=== PATIENT | female | born 1995 | race Caucasian/White ===

== ENCOUNTER 2017-12-18 02:33 | Emergency (ER) | payer MEDICAID ==
[~2017-12-18] VITALS: Ht 162.6 cm; Wt 77.3 kg
[~2017-12-18 02:33] MED LIST: ACETAMINOPHEN W1 TA6 PO; ADDERALL XR15 MG PO; AMOXICILLIN 8751 TAB PO; AMOXICILLIN AND1 TAB PO; ANTIDIARRHEA MED; CEPHALEXIN250 M1 PO; CLARITIN 1010 MG/TAB PO; CONCERTA18 MG PO; DEPO-PROVER150 MG/M1 IM; FERROUS SULFATE27 MG; MONONESSA 35 MC1 TA1 PO; ORAJEL; PRENATAL1 TA1 PO; PROTONIX 40MG T40 MG PO; PROVENTIL0.09 MG/A1 IH; SENOKOT S 50 MG1 TAB PO; SEROQUEL; SEROQUEL 2525 MG/TAB PO; SEROQUEL300 MG PO; SPRINTEC 35 MCG1 TAB PO; VENTOLIN0.09 MG; ZANTAC 150MG T150 MG PO; [UNRECOGNIZED DRUG - OTHER]; [UNRECOGNIZED DRUG - OTHER]
[2017-12-18 02:40] VITALS: BP 119/75; TEMP 98
[2017-12-18] MEDS ORDERED: PRENATAL (02:58)
[2017-12-18 03:25] LABS: COLLECTION METHOD CLEAN CATCH
[2017-12-18 03:33] LABS: PH 6 (5-8); SQUAMOUS EPITHELIAL 0-2 /hpf; URINE APPEARANCE Clear; URINE BACTERIA None Seen /hpf; URINE BILIRUBIN Negative (NEGATIVE); URINE BLOOD Negative (NEGATIVE); URINE COLOR Yellow; URINE GLUCOSE Negative (NEGATIVE); URINE KETONE Negative (NEGATIVE); URINE LEUKOCYTE ESTERASE Negative (NEGATIVE); URINE NITRATE Negative (NEGATIVE); URINE PROTEIN(semi-quant) Negative (NEGATIVE); URINE RBC 0-2 /hpf; URINE UROBILINOGEN Negative (NEGATIVE)
[2017-12-18 04:31] VITALS: PULSE 89
== END 2017-12-18 04:32 | disposition home or self-care (01) ==
LOC: COL.ER 02:33
PROVIDERS: Emergency Medicine
DX: O9A.211 Injury, poisoning and certain other consequences of external causes complicating pregnancy, first trimester (principal); S00.03XA Contusion of scalp, initial encounter; Z3A.00 Weeks of gestation of pregnancy not specified; Y04.2XXA Assault by strike against or bumped into by another person, initial encounter; Y92.039 Unspecified place in apartment as the place of occurrence of the external cause

== ENCOUNTER 2018-04-29 22:57 | Outpatient (CLI) | payer MEDICAID ==
[~2018-04-29] VITALS: Ht 162.6 cm; Wt 71.4 kg
[~2018-04-29 22:57] MED LIST changes: +PRENATAL
[2018-04-29 23:10] VITALS: BP 111/69; PULSE 96; TEMP 98.7
== END 2018-04-30 00:21 | disposition home or self-care (01) ==
LOC: LDRO 22:57
DX: O99.89 Other specified diseases and conditions complicating pregnancy, childbirth and the puerperium (principal); R10.30 Lower abdominal pain, unspecified; Z3A.24 24 weeks gestation of pregnancy

== ENCOUNTER 2018-05-10 20:50 | Outpatient (CLI) | payer MEDICAID ==
[~2018-05-10] VITALS: Ht 162.6 cm; Wt 70.5 kg
[2018-05-10 21:50] VITALS: BP 102/57; PULSE 88; TEMP 98.4
== END 2018-05-10 21:54 | disposition home or self-care (01) ==
LOC: LDRO 20:50
DX: O36.8120 Decreased fetal movements, second trimester, not applicable or unspecified (principal); Z3A.26 26 weeks gestation of pregnancy

== ENCOUNTER 2018-05-18 08:34 | Outpatient (CLI) | payer MEDICAID ==
[~2018-05-18] VITALS: Ht 162.6 cm; Wt 155.0 kg
[2018-05-18 08:40] VITALS: BP 102/56; PULSE 86; TEMP 98.5
[2018-05-18 08:43] VITALS: BP 102/56; PULSE 86; TEMP 98.5
[2018-05-18 09:10] VITALS: BP 84/50; PULSE 84
== END 2018-05-18 09:15 | disposition home or self-care (01) ==
LOC: LDRO 08:34
DX: O46.92 Antepartum hemorrhage, unspecified, second trimester (principal); Z3A.27 27 weeks gestation of pregnancy

== ENCOUNTER 2018-07-02 20:55 | Outpatient (CLI) | payer MEDICAID ==
[~2018-07-02] VITALS: Ht 162.6 cm; Wt 70.0 kg
[2018-07-02 22:00] VITALS: BP 108/62; PULSE 74; TEMP 98.2
[2018-07-02 22:32] VITALS: BP 101/58; PULSE 58
== END 2018-07-02 22:40 ==
LOC: LDRO 20:55 → LDR 21:00 → LDRO 22:40
DX: Z34.83 Encounter for supervision of other normal pregnancy, third trimester (principal); Z3A.33 33 weeks gestation of pregnancy
CPT/HCPCS: OP

== ENCOUNTER 2018-07-03 16:19 | Outpatient (CLI) | payer MEDICAID ==
[~2018-07-03] VITALS: Ht 162.6 cm; Wt 70.0 kg
[2018-07-03 16:34] VITALS: BP 104/55; PULSE 87; TEMP 98.2
== END 2018-07-03 17:35 | disposition home or self-care (01) ==
LOC: LDRO 16:19
DX: O42.913 Preterm premature rupture of membranes, unspecified as to length of time between rupture and onset of labor, third trimester (principal); Z3A.33 33 weeks gestation of pregnancy

== ENCOUNTER → 2018-07-09 | Outpatient (CLI) | payer MEDICAID ==
[~2018-07-09] VITALS: Ht 162.6 cm; Wt 70.9 kg
[~2018-07-09] MED LIST changes: +PROAIR HFA0.09 MG/AC IH
[2018-07-09 01:35] VITALS: BP 88/54; PULSE 74; TEMP 98.2
== END ==
LOC: LDRO 00:59
DX: O62.9 Abnormality of forces of labor, unspecified (principal); Z3A.34 34 weeks gestation of pregnancy

== ENCOUNTER 2018-08-09 06:39 | Inpatient (IN) | payer MEDICAID ==
[~2018-08-09] VITALS: Ht 162.6 cm; Wt 70.5 kg
[2018-08-09] VITALS (27 sets, daily range): BP systolic 93–191; BP diastolic 50–78; PULSE 55–86; TEMP 97.6–98.5
[2018-08-09 08:15] LABS: BASO # 0.1 (0.0-0.2); BASO % 0.7 % (0.0-2.0); EOS # 0.1 (0.0-0.7); GRAN # 5.3 (1.4-6.5); GRAN % 59.4 % (42.2-75.2); HEMOGLOBIN 11.8 g/dl (12.5-16.0); LYMPH # 2.8 (1.2-3.4); LYMPH % 31.5 % (20.0-51.0); MEAN CELL VOLUME 94 fl (80.0-100.0); MEAN CORPUSCULAR HEMOGLOBIN 31 pg (27.0-31.0); MEAN CORPUSCULAR HGB CONC 33 g/dl (33.0-37.0); MEAN PLATELET VOLUME 11.7 fl (7.4-10.4); MONO # 0.6 (0.1-0.6); MONO % 6.6 % (1.7-9.3); PLATELET COUNT 243 K/mm3 (130-400); RED BLOOD COUNT 3.86 M/mm3 (4.10-5.30); REDCELL DISTRIBUTION WIDTH-CV 13.7 % (11.5-14.5)
[2018-08-09 08:18] LABS: HEMATOCRIT 36.1 % (37.0-47.0)
[2018-08-10 01:00] VITALS: BP 110/60; PULSE 62; TEMP 98
[2018-08-10 08:00] VITALS: BP 103/53; PULSE 53; TEMP 97.5
[2018-08-10] MEDS ORDERED: IBU600 MG PO (08:30)
[2018-08-10 12:30] VITALS: BP 96/55; PULSE 79; TEMP 97.6
[2018-08-10 17:00] VITALS: BP 106/57; PULSE 57; TEMP 98.1
== END 2018-08-10 18:15 | disposition home or self-care (01) | DRG 807 ==
LOC: LDR 06:39 → OB 15:15
PROVIDERS: Obstetrics & Gynecology
PROC: 10E0XZZ Delivery of Products of Conception, External Approach (ICD-10-PCS; principal; 2018-08-09)
PROC: 3E033VJ Introduction of Other Hormone into Peripheral Vein, Percutaneous Approach (ICD-10-PCS; 2018-08-09)
PROC: 10907ZC Drainage of Amniotic Fluid, Therapeutic from Products of Conception, Via Natural or Artificial Opening (ICD-10-PCS; 2018-08-09)
PROC: 0UQMXZZ Repair Vulva, External Approach (ICD-10-PCS; 2018-08-09)
DX: O99.02 Anemia complicating childbirth (principal); Z37.0 Single live birth; O70.0 First degree perineal laceration during delivery; Z3A.39 39 weeks gestation of pregnancy; O99.334 Smoking (tobacco) complicating childbirth; F17.211 Nicotine dependence, cigarettes, in remission
CPT/HCPCS: J2590; J7120

== ENCOUNTER → 2019-04-18 | Emergency (ER) | payer MEDICAID ==
[~2019-04-18] VITALS: Ht 160 cm; Wt 61.4 kg
[~2019-04-18] MED LIST changes: +IBU600 MG PO
[2019-04-18 20:38] VITALS: BP 106/62; PULSE 88; TEMP 97.4
== END ==
LOC: COL.ER 20:27
DX: M25.572 Pain in left ankle and joints of left foot (principal)

== ENCOUNTER 2019-09-12 20:42 | Emergency (ER) | payer MEDICAID ==
[~2019-09-12] VITALS: Ht 160 cm; Wt 52.3 kg
[2019-09-12 21:01] VITALS: BP 113/65; TEMP 98.1
[2019-09-12] MEDS ORDERED: FLEXERIL 1010 MG/TAB PO (21:19)
[2019-09-12 21:50] VITALS: PULSE 95
== END 2019-09-12 21:50 | disposition home or self-care (01) ==
LOC: COL.ER 20:42
DX: G57.11 Meralgia paresthetica, right lower limb (principal); F17.210 Nicotine dependence, cigarettes, uncomplicated
CPT/HCPCS: J1885

== ENCOUNTER 2019-10-09 22:32 | Emergency (ER) | payer MEDICAID ==
[~2019-10-09] VITALS: Ht 160 cm; Wt 50.0 kg
[~2019-10-09 22:32] MED LIST changes: +FLEXERIL 1010 MG/TAB PO
[2019-10-09 22:37] VITALS: BP 119/59; PULSE 85; TEMP 98.3
[2019-10-09 23:04] LABS: COLLECTION METHOD CLEAN CATCH
[2019-10-09 23:06] LABS: BASO # 0.1 (0.0-0.2); BASO % 0.9 % (0.0-2.0); EOS # 0.2 (0.0-0.7); EOS % 2.2 % (0-4.0); GRAN # 3.2 (1.4-6.5); GRAN % 47.6 % (42.2-75.2); HEMATOCRIT 37.8 % (37.0-47.0); HEMOGLOBIN 12.3 g/dl (12.5-16.0); LYMPH # 2.9 (1.2-3.4); LYMPH % 42.4 % (20.0-51.0); MEAN CELL VOLUME 93 fl (80.0-100.0); MEAN CORPUSCULAR HEMOGLOBIN 30 pg (27.0-31.0); MEAN CORPUSCULAR HGB CONC 33 g/dl (33.0-37.0); MEAN PLATELET VOLUME 10.2 fl (7.4-10.4); MONO # 0.5 (0.1-0.6); MONO % 6.6 % (1.7-9.3); PLATELET COUNT 239 K/mm3 (130-400); RED BLOOD COUNT 4.05 M/mm3 (4.10-5.30); REDCELL DISTRIBUTION WIDTH-CV 12.6 % (11.5-14.5)
[2019-10-09 23:10] LABS: PH 6 (5-8); SQUAMOUS EPITHELIAL 0-2 /hpf; URINE APPEARANCE Clear; URINE BACTERIA None Seen /hpf; URINE BILIRUBIN Negative (NEGATIVE); URINE BLOOD 3+ (NEGATIVE); URINE COLOR Straw; URINE GLUCOSE Negative (NEGATIVE); URINE KETONE Negative (NEGATIVE); URINE LEUKOCYTE ESTERASE Negative (NEGATIVE); URINE NITRATE Negative (NEGATIVE); URINE PROTEIN(semi-quant) Negative (NEGATIVE); URINE RBC 20-50 /hpf; URINE UROBILINOGEN Negative (NEGATIVE)
== END 2019-10-10 00:50 | disposition left against medical advice (07) ==
LOC: COL.ER 22:32
PROVIDERS: Nurse Practitioner
DX: O46.91 Antepartum hemorrhage, unspecified, first trimester (principal); O99.331 Smoking (tobacco) complicating pregnancy, first trimester; F17.210 Nicotine dependence, cigarettes, uncomplicated; Z3A.00 Weeks of gestation of pregnancy not specified

== ENCOUNTER 2020-02-20 22:57 | Emergency (ER) | payer MEDICAID ==
[~2020-02-20] VITALS: Ht 160 cm; Wt 50.0 kg
[2020-02-20 22:58] VITALS: BP 107/71; TEMP 98.1
[2020-02-21 00:36] VITALS: PULSE 86
== END 2020-02-21 00:36 | disposition home or self-care (01) ==
LOC: COL.ER 22:57
DX: S83.91XA Sprain of unspecified site of right knee, initial encounter (principal); X50.1XXA Overexertion from prolonged static or awkward postures, initial encounter; W22.8XXA Striking against or struck by other objects, initial encounter
CPT/HCPCS: L1846

== ENCOUNTER 2020-05-03 17:20 | Emergency (ER) | payer MEDICAID ==
[~2020-05-03] VITALS: Ht 160 cm; Wt 57.7 kg
[2020-05-03 17:31] VITALS: BP 102/67; TEMP 98.3
[2020-05-03 19:30] VITALS: PULSE 63
== END 2020-05-03 19:30 | disposition home or self-care (01) ==
LOC: COL.ER 17:20
DX: K91.840 Postprocedural hemorrhage of a digestive system organ or structure following a digestive system procedure (principal); F17.210 Nicotine dependence, cigarettes, uncomplicated; Z98.818 Other dental procedure status

== ENCOUNTER 2020-06-10 00:56 | Emergency (ER) | payer MEDICAID ==
[~2020-06-10] VITALS: Ht 160 cm; Wt 53.2 kg
[2020-06-10 01:18] VITALS: TEMP 98.1
[2020-06-10 01:53] LABS: COLLECTION METHOD CLEAN CATCH
[2020-06-10 01:56] LABS: BASO % 0.5 % (0.0-2.0); EOS # 0.2 (0.0-0.7); EOS % 2.1 % (0-4.0); GRAN # 5.1 (1.4-6.5); HEMATOCRIT 37.5 % (37.0-47.0); HEMOGLOBIN 12.3 g/dl (12.5-16.0); LYMPH # 1.7 (1.2-3.4); MEAN CELL VOLUME 93 fl (80.0-100.0); MEAN CORPUSCULAR HEMOGLOBIN 31 pg (27.0-31.0); MEAN CORPUSCULAR HGB CONC 33 g/dl (33.0-37.0); MEAN PLATELET VOLUME 10.5 fl (7.4-10.4); MONO # 0.7 (0.1-0.6); MONO % 9.1 % (1.7-9.3); PLATELET COUNT 218 K/mm3 (130-400); RED BLOOD COUNT 4.03 M/mm3 (4.10-5.30)
[2020-06-10 02:02] LABS: MUCOUS Present /lpf; PH 6 (5-8); URINE APPEARANCE Hazy; URINE BACTERIA None Seen /hpf; URINE BILIRUBIN Negative (NEGATIVE); URINE BLOOD Negative (NEGATIVE); URINE COLOR Yellow; URINE GLUCOSE Negative (NEGATIVE); URINE KETONE Negative (NEGATIVE); URINE LEUKOCYTE ESTERASE Trace (NEGATIVE); URINE NITRATE Negative (NEGATIVE); URINE PROTEIN(semi-quant) Negative (NEGATIVE); URINE RBC 0-2 /hpf; URINE UROBILINOGEN Negative (NEGATIVE)
[2020-06-10 02:06] LABS: TRICYCLIC ANTIDEPRESS URINE NEGATIVE
[2020-06-10 02:06] LABS: ALBUMIN 3.7 gm/dL (3.5-5.0); BILIRUBIN,TOTAL 0.5 mg/dL (0.0-1.0); CALCIUM 8.5 mg/dL (8.4-10.2); CREATININE, serum 0.42 (0.52-1.25); POTASSIUM 3.1 mmol/L (3.4-5.0); TOTAL PROTEIN 6.8 gm/dL (6.4-8.2)
[2020-06-10] MEDS ORDERED: PHENERGAN 25 TA25 MG PO (02:49)
[2020-06-10 04:32] VITALS: BP 90/54; PULSE 71
== END 2020-06-10 04:40 | disposition home or self-care (01) ==
LOC: COL.ER 00:56
PROVIDERS: Nurse Practitioner Primary Care
DX: O26.812 Pregnancy related exhaustion and fatigue, second trimester (principal); O21.9 Vomiting of pregnancy, unspecified; R10.9 Unspecified abdominal pain; E86.0 Dehydration; Z3A.15 15 weeks gestation of pregnancy; Z91.018 Allergy to other foods
CPT/HCPCS: J2405; J2550; J7030

== ENCOUNTER 2020-10-26 22:28 | Outpatient (CLI) | payer MEDICAID ==
[~2020-10-26] VITALS: Ht 160 cm; Wt 54.5 kg
[~2020-10-26 22:28] MED LIST changes: +PHENERGAN 25 TA25 MG PO
--- NOTE | 2020-10-26 22:40 | NUR ---
G4L2 at 34 weeks and 3 days gestation arrives to unit with complaint of pain and losing her mucous plug. Pt states she lost her plug and there was some blood in it. Pt also states having to change her underwear multiple times a day. Pts pain is sharp and constant and isn't described like contractions. Pt arrived to unit by ambulance in police custody, officer at bedside. US and toco explained and applied. Admission assessment started. Vital signs obtained. SVE by Laith / white discharge noted on exam glove. Amnitrace negative.
[2020-10-26 23:00] VITALS: BP 100/52; PULSE 70; TEMP 97.8
[2020-10-26 23:30] VITALS: PULSE 69
--- NOTE | 2020-10-26 23:30 | NUR ---
Pt states she has felt more leaking. Peritowel appears dry. Amnitrace negative. Discussed possible BV or other infection and patient states "yea I keep getting that but the pills make me throw up"
--- NOTE | 2020-10-26 23:50 | NUR ---
SVE 1-2/50/-3, membranes felt on exam. head presenting part. See physician notification.
[2020-10-27] VITALS: PULSE 75
[2020-10-27 00:21] LABS: COLLECTION METHOD CLEAN CATCH
[2020-10-27 00:30] VITALS: BP 81/49; PULSE 73
[2020-10-27 00:30] LABS: BUDDING YEAST Present /hpf; MUCOUS Present /lpf; PH 5 (5-8); URINE APPEARANCE Turbid; URINE BACTERIA Rare /hpf; URINE BILIRUBIN Negative (NEGATIVE); URINE BLOOD 3+ (NEGATIVE); URINE COLOR Yellow; URINE GLUCOSE Negative (NEGATIVE); URINE KETONE Negative (NEGATIVE); URINE LEUKOCYTE ESTERASE 3+ (NEGATIVE); URINE NITRATE Negative (NEGATIVE); URINE PROTEIN(semi-quant) 2+ (NEGATIVE); URINE RBC >50 /hpf; URINE UROBILINOGEN Negative (NEGATIVE); URINE WBC >50 /hpf
--- NOTE | 2020-10-27 00:30 | NUR ---
Pts BP 81/49, patient laying on right side and BP taken in left arm. Pt asymptomatic.
--- NOTE | 2020-10-27 01:15 | NUR ---
0023 - Tylenol and vistaril given, see MAR. Encouraged patient to hydrate. Pt does not appear to be having contractions, complains of pelvic pain and difficulty moving. 0100 - SVE unchanged. Reviewed discharge plan with patient, verbalized understanding. 0115 - Macrobid given, see MAR. Discharge instructions and prescription reviewed with patient and given to [employer] officer. Pt off unit in wheelchair with belongings accompanied by [employer] officer.
== END 2020-10-27 01:15 | disposition home or self-care (01) ==
LOC: LDRO 22:28 → LDR 22:43 → LDRO 10-27 01:15
PROVIDERS: Obstetrics & Gynecology
DX: O26.23 Pregnancy care for patient with recurrent pregnancy loss, third trimester (principal); Z3A.34 34 weeks gestation of pregnancy
CPT/HCPCS: OP

== ENCOUNTER 2020-11-11 16:10 | Outpatient (CLI) | payer MEDICAID ==
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
[2020-11-11 16:24] VITALS: BP 121/81; PULSE 98; TEMP 98
[2020-11-11 16:30] VITALS: BP 121/81; PULSE 92; TEMP 98
[2020-11-11] MEDS ORDERED: PRENATAL (16:32)
[2020-11-11 17:00] VITALS: BP 110/72; PULSE 86
[2020-11-11 17:09] VITALS: BP 110/72; PULSE 86
[2020-11-11 17:13] LABS: TRICYCLIC ANTIDEPRESS URINE NEGATIVE
--- NOTE | 2020-11-11 17:15 | NUR ---
PATIENT OFF EFM AND DRESSED TO GO HOME. PATIENT STATES SHE HAS NO GAS MONEY AND UNABLE TO GO TO HER DOCTORS APTS. PATIENT INFORMED OF [facility]. PATIENT INFORMED TO CALL 911 IF SHE DOESNT HAVE A RIDE AND GOES INTO LABOR. DR BAKER NOTIFIED
== END 2020-11-11 17:20 | disposition home or self-care (01) ==
LOC: LDRO 16:10 → LDR 16:38 → LDRO 17:20
PROVIDERS: Obstetrics & Gynecology
DX: O26.893 Other specified pregnancy related conditions, third trimester (principal); R25.2 Cramp and spasm; Z3A.37 37 weeks gestation of pregnancy
CPT/HCPCS: OP

== ENCOUNTER 2022-02-27 21:25 | Emergency (ER) | payer MEDICAID ==
[~2022-02-27] VITALS: Ht 160 cm; Wt 54.5 kg
[2022-02-27 21:36] VITALS: TEMP 97.4
[2022-02-27 22:39] LABS: BASO # 0.1 K/mm3 (0.0-0.2); BASO % 0.9 % (0.0-2.0); EOS # 0.1 K/mm3 (0.0-0.7); EOS % 0.4 % (0.0-4.0); GRAN # 7.6 K/mm3 (1.4-6.5); GRAN % 66.9 % (42.2-75.2); HEMATOCRIT 41.5 % (37.0-47.0); HEMOGLOBIN 14.2 g/dl (12.5-16.0); LYMPH # 2.4 K/mm3 (1.2-3.4); LYMPH % 21.2 % (20.0-51.0); MEAN CELL VOLUME 86 fl (80.0-100.0); MEAN CORPUSCULAR HEMOGLOBIN 29 pg (27-31); MEAN CORPUSCULAR HGB CONC 34 g/dl (33.0-37.0); MEAN PLATELET VOLUME 10.4 fl (7.4-10.4); MONO # 1.2 K/mm3 (0.1-0.6); MONO % 10.3 % (1.7-9.3); PLATELET COUNT 311 K/mm3 (130-400); RED BLOOD COUNT 4.84 M/mm3 (4.10-5.30); REDCELL DISTRIBUTION WIDTH-CV 12.6 % (11.5-14.5)
[2022-02-27 23:04] LABS: ALBUMIN 4.3 gm/dL (3.5-5.0); BILIRUBIN,TOTAL 2.6 mg/dL (0.2-1.2); CALCIUM 9.4 mg/dL (8.4-10.2); CREATININE, serum 0.9 mg/dL (0.57-1.11); POTASSIUM 3.6 mmol/L (3.5-4.5); TOTAL PROTEIN 7.9 gm/dL (6.2-8.1)
[2022-02-27 23:13] VITALS: BP 112/78; PULSE 76
== END 2022-02-27 23:39 | disposition short-term general hospital (02) ==
LOC: COL.ER 21:25
PROVIDERS: Personal Emergency Response Attendant
DX: T76.21XA Adult sexual abuse, suspected, initial encounter (principal); R10.2 Pelvic and perineal pain; F17.290 Nicotine dependence, other tobacco product, uncomplicated; Z28.310 Unvaccinated for COVID-19; Z32.02 Encounter for pregnancy test, result negative

== ENCOUNTER 2022-03-18 23:31 | Emergency (ER) | payer MEDICAID ==
[~2022-03-18] VITALS: Ht 160 cm; Wt 50.0 kg
[2022-03-18 23:37] VITALS: TEMP 98.7
[2022-03-18] MEDS ORDERED: DIFLUCAN150 MG PO (23:42)
[2022-03-18] MEDS ORDERED: PROVENTIL0.09 MG/A1 IH (23:42)
[2022-03-18] MEDS ORDERED: AMOXICILLIN 8751 TAB PO (23:42)
[2022-03-19] MEDS ORDERED: PREDNISONE20 MG PO (00:44)
[2022-03-19 00:55] VITALS: BP 117/66; PULSE 82
== END 2022-03-19 00:55 | disposition home or self-care (01) ==
LOC: COL.ER 23:31
DX: J45.901 Unspecified asthma with (acute) exacerbation (principal); F17.210 Nicotine dependence, cigarettes, uncomplicated
CPT/HCPCS: J7512

== ENCOUNTER 2022-08-20 16:22 | Emergency (ER) | payer MEDICAID ==
[~2022-08-20] VITALS: Ht 160 cm; Wt 54.5 kg
[~2022-08-20 16:22] MED LIST changes: +DIFLUCAN150 MG PO; +PREDNISONE20 MG PO
[2022-08-20 16:42] VITALS: TEMP 98.1
[2022-08-20 17:41] VITALS: BP 120/89; PULSE 63
== END 2022-08-20 17:44 | disposition home or self-care (01) ==
LOC: COL.ER 16:22
DX: R20.2 Paresthesia of skin (principal); Z28.310 Unvaccinated for COVID-19